=== PATIENT | male | born 1945 | race Caucasian/White ===

== ENCOUNTER 2017-06-06 11:51 | Day surgery (SDC) | payer MEDICARE, OTHER ==
[~2017-06-06] VITALS: Ht 185.4 cm; Wt 86.2 kg
[~2017-06-06 11:51] MED LIST: ACET500 PO; AMLO5 PO; BACL20 PO; CELE200 PO; CYCL10 PO; GABA600 PO; METO50 PO; OLME20 PO; OLME5TAB PO; ORPHENADRINE CITRATE PO; TAMS.4ER PO; TRAM50 PO; VERA240ERB PO; VERA80 PO; VITAMIN D400 UNI1 PO
[2017-06-06] MEDS ORDERED: UBID100 PO (12:18)
[2017-06-07 04:47] LABS: BASOPHILS ABSOLUTE AUTO 0.02 K/mm3 (0.00-0.23); BASOPHILS PERCENT AUTO 0 % (0-2); EOSINOPHILS ABSOLUTE AUTO 0.01 K/mm3 (0.00-0.68); EOSINOPHILS PERCENT AUTO 0 % (0-6); Hematocrit 34.9 % (37.0-53.0); Hemoglobin 11.8 g/dL (13.5-17.5); IMMATURE GRAN ABSOLUTE AUTO 0.06 K/mm3 (0.00-0.10); IMMATURE GRAN PERCENT AUTO 1 % (0-1); LYMPHOCYTES PERCENT AUTO 18 % (21-46); MONOCYTES ABSOLUTE AUTO 1.02 K/mm3 (0.16-1.47); MONOCYTES PERCENT AUTO 9 % (4-13); Mean Corpuscular HGB 31.6 pg (26.0-34.0); Mean Corpuscular HGB Conc 33.8 g/dL (31.5-36.5); Mean Corpuscular Volume 93 fL (80-100); Mean Platelet Volume 10.4 fL (9.1-12.4); NEUTROPHILS PERCENT AUTO 73 % (41-73); Platelet Count 263 K/mm3 (150-400); RDW Coefficient Variation 13.4 % (11.7-14.2); RDW Standard Deviation 45.5 fL (35.1-46.3); Red Blood Cell Count 3.74 M/mm3 (4.30-5.90); White Blood Cell Count 11.71 K/mm3 (4.00-11.30)
[2017-06-07 05:04] LABS: Anion Gap 8 mmol/L (6-16); Blood Urea Nitrogen 16 mg/dL (8-24); Bun/Creatinine Ratio 17.3 (12.0-20.0); CO2, Blood 26 mmol/L (21-32); Calcium, Blood 8.6 mg/dL (8.5-10.1); Chloride, Blood 107 mmol/L (98-108); Creatinine, Blood 0.93 mg/dL (0.60-1.20); Glomerular Filtration Rate >60 (60-); Glucose, Blood 92 mg/dL (70-99); Potassium, Blood 3.5 mmol/L (3.5-5.5); Sodium, Blood 141 mmol/L (136-145)
[2017-06-07] MEDS ORDERED: OXYC5 PO (12:00)
[2017-06-07] MEDS ORDERED: WARF4 PO (12:02)
== END 2017-06-07 15:00 | disposition home or self-care (01) ==
LOC: SURS 11:51 → PRE IP 11:51 → ORSCMMR 11:51 → EDSTATUS 13:30 → PRE IP 13:30 → SURS 18:02 → ORSCMMR 06-07 15:00
PROVIDERS: Orthopaedic Surgery
PROC: 0SRC0J9 Replacement of Right Knee Joint with Synthetic Substitute, Cemented, Open Approach (ICD-10-PCS; principal; 2017-06-06 13:30)
DX: M17.11 Unilateral primary osteoarthritis, right knee (principal); Z01.812 Encounter for preprocedural laboratory examination; Z01.818 Encounter for other preprocedural examination; I10 Essential (primary) hypertension; I69.351 Hemiplegia and hemiparesis following cerebral infarction affecting right dominant side; G47.33 Obstructive sleep apnea (adult) (pediatric); Z79.899 Other long term (current) drug therapy
CPT/HCPCS: 36415; 73560-RT; 80048; 85025; 86850; 86900; 86901; 88300; 97110; 97116; 97162; 97530; C1713; C1776; G8978; G8979; J0171; J0360; J0690; J0735; J1100; J1885; J2250; J2405; J2795; J3010; J7120

== ENCOUNTER 2017-06-17 04:55 | Emergency (ER) | payer MEDICARE, OTHER ==
[~2017-06-17] VITALS: Ht 188 cm; Wt 86.2 kg
[~2017-06-17 04:55] MED LIST changes: +OXYC5 PO; +UBID100 PO; +WARF4 PO
[2017-06-17] MEDS ORDERED: Roxicodone5 MG PO (06:39)
== END 2017-06-17 07:13 | disposition home or self-care (01) ==
LOC: ER 04:55
DX: G89.18 Other acute postprocedural pain (principal); M25.561 Pain in right knee; I10 Essential (primary) hypertension; Z96.651 Presence of right artificial knee joint; Z79.891 Long term (current) use of opiate analgesic; Z79.01 Long term (current) use of anticoagulants; Z79.899 Other long term (current) drug therapy; Z88.5 Allergy status to narcotic agent; Z88.1 Allergy status to other antibiotic agents
CPT/HCPCS: 73560-RT; 96374; 99283; J1170

== ENCOUNTER → 2019-08-29 | Outpatient (CLI) | payer MEDICARE, OTHER ==
[~2019-08-29] MED LIST changes: +Roxicodone5 MG PO
[2019-08-30 14:27] LABS: Stool Occult Bld Immuno 1 Negative (NEGATIVE)
== END ==
LOC: LAB SHORT 14:59 → LAB 14:59 → LAB FUT 08-27 09:05
PROVIDERS: Family Medicine
DX: D64.89 Other specified anemias (principal); N40.1 Benign prostatic hyperplasia with lower urinary tract symptoms; E29.1 Testicular hypofunction; I10 Essential (primary) hypertension
CPT/HCPCS: 82274

== ENCOUNTER 2020-02-11 06:07 | Day surgery (SDC) | payer MEDICARE, OTHER ==
[~2020-02-11] VITALS: Ht 188 cm; Wt 81.0 kg
[~2020-02-11 06:07] MED LIST changes: +AMLO10 PO; +Biotin800 MCG PO; +CHONDROITIN SU100 G1 PO; +COLLAGEN TYPE PO; +Curcumin1 GM PO; +GLUC500 PO; +HYALURONIC ACID PO; +KRILL OIL500 MG PO; +NIAC500 PO; +POTASSIUM PO; +PREG50 PO; +Pantothenic Ac500 MG PO; +SERAPEPTASE PO; +SODIUM PO; +SUPER B COMPLEX PO; +TYLENOL W/CODEINE PO; +VITAMIN B6 PO; +[UNRECOGNIZED DRUG - OTHER] PO; +[UNRECOGNIZED DRUG - OTHER] PO; +[UNRECOGNIZED DRUG - OTHER] TOP
== END 2020-02-11 23:01 | disposition home or self-care (01) ==
LOC: ORSCMMR 06:07 → ORD 07:30 → ORSCMMR 07:30
PROVIDERS: Surgery
PROC: 8E0W0CZ Robotic Assisted Procedure of Trunk Region, Open Approach (ICD-10-PCS; principal; 2020-02-11 07:30)
PROC: 0YU50JZ Supplement Right Inguinal Region with Synthetic Substitute, Open Approach (ICD-10-PCS; principal; 2020-02-11 07:30)
DX: K40.90 Unilateral inguinal hernia, without obstruction or gangrene, not specified as recurrent (principal); I10 Essential (primary) hypertension; G47.33 Obstructive sleep apnea (adult) (pediatric); Z86.73 Personal history of transient ischemic attack (TIA), and cerebral infarction without residual deficits; Z79.899 Other long term (current) drug therapy
CPT/HCPCS: 49505; S2900; C1781; J0690; J1100; J2250; J2405; J2704; J3010; J7120

== ENCOUNTER → 2020-05-11 | Outpatient (CLI) | payer MEDICARE | LOC: LAB SHORT 12:08 → LAB 12:08 | DX: D48.5 Neoplasm of uncertain behavior of skin (principal) | CPT/HCPCS: 88305 ==

== ENCOUNTER 2021-03-26 06:24 | Day surgery (SDC) | payer MEDICARE ==
[~2021-03-26] VITALS: Ht 182.9 cm; Wt 78.7 kg
[~2021-03-26 06:24] MED LIST changes: +PREG200; -PREG50 PO
[2021-03-26] MEDS ORDERED: METOPROLOL SUCC25 MG PO (07:18)
--- NOTE | 2021-03-26 07:48 | NUR ---
03/26/21 0748 Silver Frazier 0.25MG EPI ADDED TO 50ML'S 0.5% MARCAINE TO ACHIEVE SOLUTION OF 0.5% MARCAINE WITH EPI 1:200,000.
== END 2021-03-26 08:40 | disposition home or self-care (01) ==
LOC: ORSCSDS 06:24
PROVIDERS: Podiatrist Foot & Ankle Surgery
PROC: 2W5LXYZ Removal of Other Device on Right Lower Extremity (ICD-10-PCS; principal; 2021-03-26 07:30)
DX: T84.84XA Pain due to internal orthopedic prosthetic devices, implants and grafts, initial encounter (principal); I10 Essential (primary) hypertension; G47.33 Obstructive sleep apnea (adult) (pediatric); Z79.899 Other long term (current) drug therapy
CPT/HCPCS: J0171; J0690; J1100; J2250; J2405; J2704; J3010; J7120

== ENCOUNTER → 2021-04-21 | Outpatient (CLI) | payer MEDICARE ==
[~2021-04-21] MED LIST changes: +METOPROLOL SUCC25 MG PO
== END | disposition home or self-care (01) ==
LOC: LAB 10:44 → LAB SHORT 10:44
DX: D22.5 Melanocytic nevi of trunk (principal)
CPT/HCPCS: 88305

== ENCOUNTER 2021-12-30 19:59 | Emergency (ER) | payer MEDICARE ==
[~2021-12-30] VITALS: Ht 182.9 cm; Wt 81.7 kg
== END 2021-12-30 21:18 | disposition home or self-care (01) ==
LOC: ER 19:59
DX: S01.01XA Laceration without foreign body of scalp, initial encounter (principal); I10 Essential (primary) hypertension; W22.03XA Walked into furniture, initial encounter; Z79.899 Other long term (current) drug therapy
CPT/HCPCS: 12002; 99282-25

== ENCOUNTER 2022-11-28 19:27 | Emergency (ER) | payer MEDICARE ==
[~2022-11-28] VITALS: Ht 182.9 cm; Wt 79.4 kg
[2022-11-28 19:48] VITALS: BP 180/69
== END 2022-11-28 23:39 | disposition home or self-care (01) ==
LOC: ER 19:27
DX: S61.412A Laceration without foreign body of left hand, initial encounter (principal); I10 Essential (primary) hypertension; W18.40XA Slipping, tripping and stumbling without falling, unspecified, initial encounter; W45.8XXA Other foreign body or object entering through skin, initial encounter; Z88.8 Allergy status to other drugs, medicaments and biological substances; Z79.899 Other long term (current) drug therapy
CPT/HCPCS: 12001; 99283-25

== ENCOUNTER 2023-06-23 15:54 | Emergency (ER) | payer MEDICARE ==
[~2023-06-23] VITALS: Ht 180.3 cm; Wt 77.1 kg
[2023-06-23 16:18] VITALS: BP 184/77
== END 2023-06-23 16:30 | disposition home or self-care (01) ==
LOC: ER 15:54
DX: M75.101 Unspecified rotator cuff tear or rupture of right shoulder, not specified as traumatic (principal); I10 Essential (primary) hypertension; Z98.890 Other specified postprocedural states; Z91.81 History of falling; Z79.899 Other long term (current) drug therapy; Z88.1 Allergy status to other antibiotic agents
CPT/HCPCS: 99283

== ENCOUNTER → 2023-11-08 | Outpatient (CLI) | payer MEDICARE ==
[2023-11-08 16:05] LABS: Alanine Aminotransfer (ALT/SGP 29 U/L (12-78); Albumin, Blood 4.1 g/dL (3.4-5.0); Albumin/Globulin Ratio 1.2 (0.8-1.8); Alk Phos 78 U/L (50-136); Anion Gap 8 mmol/L (3-11); Aspartate Aminotrans (AST/SGOT 28 U/L (12-37); Blood Urea Nitrogen 18 mg/dL (8-24); Bun/Creatinine Ratio 25.7 (12.0-20.0); CHOL/HDL RATIO 2.3; CO2, Blood 30 mmol/L (21-32); Calcium, Blood 9.6 mg/dL (8.5-10.1); Chloride, Blood 106 mmol/L (98-108); Cholesterol 189 mg/dL (50-200); Globulin, Blood 3.3 g/dL (2.2-4.0); Glomerular Filtration Rate 95 (60-); Glucose, Blood 103 mg/dL (70-99); HDL Cholesterol 82 mg/dL (>39); LDL/HDL RATIO 1.1; Low Density Lipoprotein Chol 87 mg/dL (0-110); Potassium, Blood 3.7 mmol/L (3.5-5.5); Sodium, Blood 140 mmol/L (136-145); Total Protein, Blood 7.4 g/dL (6.4-8.2); Triglycerides 100 mg/dL (30-160); Very Low Density Lipoprot Chol 20 mg/dL (6-32)
== END | disposition home or self-care (01) ==
LOC: LAB SHORT 15:08 → LAB 15:08
PROVIDERS: Family Medicine
DX: E78.5 Hyperlipidemia, unspecified (principal); I10 Essential (primary) hypertension
CPT/HCPCS: 80053; 80061

== ENCOUNTER → 2024-05-22 | Outpatient (CLI) | payer OTHER ==
[2024-05-22 18:42] LABS: BASOPHILS ABSOLUTE AUTO 0.04 K/mm3 (0.00-0.23); BASOPHILS PERCENT AUTO 1 % (0-2); EOSINOPHILS ABSOLUTE AUTO 0.22 K/mm3 (0.00-0.68); EOSINOPHILS PERCENT AUTO 3 % (0-6); Hematocrit 36.4 % (37.0-53.0); Hemoglobin 12.3 g/dL (13.5-17.5); IMMATURE GRAN ABSOLUTE AUTO 0.02 K/mm3 (0.00-0.10); IMMATURE GRAN PERCENT AUTO 0 % (0-1); LYMPHOCYTES PERCENT AUTO 31 % (21-46); MONOCYTES ABSOLUTE AUTO 0.68 K/mm3 (0.16-1.47); MONOCYTES PERCENT AUTO 9 % (4-13); Mean Corpuscular HGB 30.5 pg (26.0-34.0); Mean Corpuscular HGB Conc 33.8 g/dL (31.5-36.5); Mean Corpuscular Volume 90 fL (80-100); Mean Platelet Volume 10.6 fL (9.1-12.4); NEUTROPHILS ABSOLUTE AUTO 4.38 K/mm3 (1.96-9.15); NEUTROPHILS PERCENT AUTO 57 % (41-73); Platelet Count 293 K/mm3 (150-400); RDW Coefficient Variation 14.1 % (11.7-14.2); Red Blood Cell Count 4.03 M/mm3 (4.30-5.90); White Blood Cell Count 7.74 K/mm3 (4.00-11.30)
[2024-05-22 19:50] LABS: Alanine Aminotransfer (ALT/SGP 22 U/L (12-78); Albumin, Blood 3.5 g/dL (3.4-5.0); Alk Phos 77 U/L (50-136); Anion Gap 8 mmol/L (3-11); Aspartate Aminotrans (AST/SGOT 22 U/L (12-37); Bilirubin, Total 0.7 mg/dL (0.1-1.0); Blood Urea Nitrogen 21 mg/dL (8-24); Bun/Creatinine Ratio 22.7 (12.0-20.0); CHOL/HDL RATIO 2.1; CO2, Blood 29 mmol/L (21-32); Calcium, Blood 9.5 mg/dL (8.5-10.1); Chloride, Blood 104 mmol/L (98-108); Cholesterol 158 mg/dL (50-200); Creatinine, Blood 0.92 mg/dL (0.60-1.20); Globulin, Blood 3.4 g/dL (2.2-4.0); Glomerular Filtration Rate 86 (60-); Glucose, Blood 127 mg/dL (70-99); HDL Cholesterol 75 mg/dL (>39); LDL/HDL RATIO 0.7; Low Density Lipoprotein Chol 54 mg/dL (0-110); Potassium, Blood 4.1 mmol/L (3.5-5.5); Sodium, Blood 137 mmol/L (136-145); Total Protein, Blood 6.9 g/dL (6.4-8.2); Triglycerides 144 mg/dL (30-160); Very Low Density Lipoprot Chol 28 mg/dL (6-32)
== END ==
LOC: LAB SHORT 17:05 → LAB 17:05
PROVIDERS: Family Medicine
DX: Z51.81 Encounter for therapeutic drug level monitoring (principal); Z79.899 Other long term (current) drug therapy
CPT/HCPCS: 80053; 80061; 82306; 83036; 84443; 85025

== ENCOUNTER → 2024-12-10 | Outpatient (CLI) | payer OTHER | LOC: LAB 08:26 → LAB SHORT 08:26 | DX: D23.5 Other benign neoplasm of skin of trunk (principal); D22.5 Melanocytic nevi of trunk | CPT/HCPCS: 88305 ==

== ENCOUNTER → 2025-01-14 | Outpatient (CLI) | payer OTHER | END | disposition home or self-care (01) | LOC: LAB 15:15 → LAB SHORT 15:15 | DX: R82.998 Other abnormal findings in urine (principal) | CPT/HCPCS: 87086 ==

== ENCOUNTER → 2025-03-25 | Outpatient (CLI) | payer OTHER | END | disposition home or self-care (01) | LOC: LAB 15:15 → LAB SHORT 15:15 | DX: L02.31 Cutaneous abscess of buttock (principal) | CPT/HCPCS: 87070; 87205 ==

== ENCOUNTER 2025-04-21 18:54 | Inpatient (IN) | payer OTHER ==
[~2025-04-21] VITALS: Ht 180.3 cm; Wt 85.3 kg
[~2025-04-21 18:54] MED LIST changes: +Lidocaine HCl 2% 20 MG/ML 5ML SYR IV ONE; +Propofol 10mg/ml 20 ml Vial (Procedural) IV ONE
[2025-04-21 19:30] LABS: BASOPHILS ABSOLUTE AUTO 0.04 K/mm3 (0.00-0.23); BASOPHILS PERCENT AUTO 0 % (0-2); EOSINOPHILS ABSOLUTE AUTO 0.00 K/mm3 (0.00-0.68); EOSINOPHILS PERCENT AUTO 0 % (0-6); Hematocrit 32.2 % (37.0-53.0); Hemoglobin 10.8 g/dL (13.5-17.5); IMMATURE GRAN ABSOLUTE AUTO 0.12 K/mm3 (0.00-0.10); IMMATURE GRAN PERCENT AUTO 1 % (0-1); LYMPHOCYTES ABSOLUTE AUTO 1.56 K/mm3 (0.84-5.20); LYMPHOCYTES PERCENT AUTO 8 % (21-46); MONOCYTES ABSOLUTE AUTO 1.36 K/mm3 (0.16-1.47); MONOCYTES PERCENT AUTO 7 % (4-13); Mean Corpuscular HGB Conc 33.5 g/dL (31.5-36.5); Mean Corpuscular Volume 91 fL (80-100); NEUTROPHILS ABSOLUTE AUTO 15.46 K/mm3 (1.96-9.15); NEUTROPHILS PERCENT AUTO 84 % (41-73); NRBC ABSOLUTE 0.00 K/mm3 (0.00-0.02); NRBC Auto 0.0 /100 WBC (0.0-0.2); Platelet Count 319 K/mm3 (150-400); RDW Coefficient Variation 13.4 % (11.7-14.2); RDW Standard Deviation 45.1 fL (35.1-46.3)
[2025-04-21 20:02] LABS: Alanine Aminotransfer (ALT/SGP 39.0 U/L (12-78); Albumin, Blood 2.5 g/dL (3.4-5.0); Albumin/Globulin Ratio 0.7 (0.8-1.8); Anion Gap 5.0 mmol/L (3-11); Aspartate Aminotrans (AST/SGOT 54.0 U/L (12-37); Bilirubin, Total 0.3 mg/dL (0.1-1.0); Blood Urea Nitrogen 42.0 mg/dL (8-24); CO2, Blood 27.0 mmol/L (21-32); Calcium, Blood 9.1 mg/dL (8.5-10.1); Chloride, Blood 103.0 mmol/L (98-108); Creatinine, Blood 1.09 mg/dL (0.60-1.20); Globulin, Blood 3.5 g/dL (2.2-4.0); Glucose, Blood 122.0 mg/dL (70-99); Potassium, Blood 3.9 mmol/L (3.5-5.5); Sodium, Blood 131.0 mmol/L (136-145); Total Protein, Blood 6.0 g/dL (6.4-8.2)
[2025-04-21 21:04] LABS: Source, Urine Clean Catch
[2025-04-21 21:07] LABS: Bilirubin, Urine Neg (Neg); Color, Urine Amber (P-Yellow); Glucose Qualitative, Urine Neg (Neg); Ketones, Urine Neg (Neg); Leukocyte Esterase, Urine 2+ (Neg); Protein, Urine 2+ (Neg); Specific Gravity, Urine 1.020 (1.003-1.022); Urobilinogen, Urine NORM (Normal)
[2025-04-21] MEDS ORDERED: CefTRIAXone Sodium 1,000 MG in NS 50 ML IV ONE (23:00)
[2025-04-21] MEDS ORDERED: NS 1,000 ML IV SCH ×2 (23:00→23:25)
[2025-04-21] MEDS ORDERED: FLU VACC TS2025(65UP)/MF59C/PF 45 MCG/0.5 ML SYRINGE IM SCH (23:25)
[2025-04-21] MEDS ORDERED: Ondansetron HCl 2 MG / ML 2ML Vial IV PRN (23:25)
[2025-04-21 23:42] LABS: Magnesium, Blood 2.4 mg/dL (1.6-2.4); Phosphorus, Blood 3.2 mg/dL (2.5-4.9); Thyroid Stimulating Hormone 0.991 uIU/mL (0.360-4.800)
[2025-04-21] MEDS ORDERED: METO100ER PO (23:51)
[2025-04-22] VITALS (7 sets, daily range): BP systolic 136–158; BP diastolic 55–77
[2025-04-22 01:52] LABS: Influenza A, PCR NEGATIVE (NEGATIVE); Influenza B, PCR NEGATIVE (NEGATIVE); Resp Syncytial Virus, PCR NEGATIVE (NEGATIVE); SARS-Cov-2 (COVID-19) PCR, MMC NEGATIVE (NEGATIVE)
[2025-04-22 05:11] LABS: BASOPHILS ABSOLUTE AUTO 0.02 K/mm3 (0.00-0.23); BASOPHILS PERCENT AUTO 0 % (0-2); EOSINOPHILS ABSOLUTE AUTO 0.01 K/mm3 (0.00-0.68); EOSINOPHILS PERCENT AUTO 0 % (0-6); Hematocrit 28.8 % (37.0-53.0); Hemoglobin 9.6 g/dL (13.5-17.5); IMMATURE GRAN ABSOLUTE AUTO 0.16 K/mm3 (0.00-0.10); IMMATURE GRAN PERCENT AUTO 1 % (0-1); LYMPHOCYTES ABSOLUTE AUTO 2.15 K/mm3 (0.84-5.20); LYMPHOCYTES PERCENT AUTO 14 % (21-46); MONOCYTES ABSOLUTE AUTO 1.38 K/mm3 (0.16-1.47); MONOCYTES PERCENT AUTO 9 % (4-13); Mean Corpuscular HGB Conc 33.3 g/dL (31.5-36.5); Mean Corpuscular Volume 92 fL (80-100); NEUTROPHILS ABSOLUTE AUTO 12.22 K/mm3 (1.96-9.15); NEUTROPHILS PERCENT AUTO 77 % (41-73); NRBC ABSOLUTE 0.00 K/mm3 (0.00-0.02); NRBC Auto 0.0 /100 WBC (0.0-0.2); Platelet Count 273 K/mm3 (150-400); RDW Coefficient Variation 13.5 % (11.7-14.2); RDW Standard Deviation 45.7 fL (35.1-46.3)
[2025-04-22 05:36] LABS: Alanine Aminotransfer (ALT/SGP 34.0 U/L (12-78); Albumin, Blood 2.0 g/dL (3.4-5.0); Albumin/Globulin Ratio 0.7 (0.8-1.8); Anion Gap 5.0 mmol/L (3-11); Aspartate Aminotrans (AST/SGOT 47.0 U/L (12-37); Bilirubin, Total 0.2 mg/dL (0.1-1.0); Blood Urea Nitrogen 36.0 mg/dL (8-24); CO2, Blood 26.0 mmol/L (21-32); Calcium, Blood 8.5 mg/dL (8.5-10.1); Chloride, Blood 110.0 mmol/L (98-108); Creatinine, Blood 0.97 mg/dL (0.60-1.20); Globulin, Blood 2.9 g/dL (2.2-4.0); Glucose, Blood 97.0 mg/dL (70-99); Potassium, Blood 3.4 mmol/L (3.5-5.5); Sodium, Blood 138.0 mmol/L (136-145); Total Protein, Blood 4.9 g/dL (6.4-8.2)
--- NOTE | 2025-04-22 06:26 | NUR ---
ASSUMED CARE 0130, PT IS PLEASANT ON ARRIVAL TO UNIT WITH . PT ON IV FLUIDS FOR SEPSIS RECOVERY, PENDING ECHO IN AM. PT IS UP W/ 1 TO WHEELCHAIR AND USES CALL LIGHT APPROPRIATELY.
[2025-04-22] MEDS ORDERED: Enoxaparin 40 MG/0.4 ML SYR SC SCH (09:00)
[2025-04-22] MEDS ORDERED: ASPI325 PO (09:21)
--- NOTE | 2025-04-22 09:31 | NUR ---
PALLIATIVE CARE CONSULT: CONSULT RECEIVED FOR ADVANCED CARE PLANNING AND SYMPTOM MANAGEMENT. NOAD/POLST ON FILE OR WITH O[facility]. REVEIWED MEDICAL RECORD. PROCESSED CONSULT.
[2025-04-22] MEDS ORDERED: BUPRENORPHN-NA1 EACH SL (09:58)
[2025-04-22] MEDS ORDERED: BUPRENORPHINE1 EAC6 TD (10:00)
[2025-04-22] MEDS ORDERED: Buprenorphine HCL/Naloxone HCL 2-0.5MG 1 EA SL SCH (11:00)
[2025-04-22] MEDS ORDERED: Lactobacil 2-S.Thermo-Bifido 1 1 Cap PO SCH (11:00)
[2025-04-22] MEDS ORDERED: Vancomycin (Pharmacy Consult) IV SCH (15:00)
[2025-04-22] MEDS ORDERED: Potassium Chloride 10 Meq Tablet SA PO ONE (15:00)
[2025-04-22] MEDS ORDERED: NS 250 ML IV PRN (15:30)
--- NOTE | 2025-04-22 17:37 | NUR ---
PT ALERT AND ORIENTED X3, CHRONIC PAIN TO RIGHT SIDE OF BODY DUE TO PREIOUS CVA. PT STATES REFERRAL TO PAIN SPECIALIST IN PROCESS PER PCP-NO APPT SCHEDULED AT THIS POINT. SUBOXONE PATCH IN PLACE AND DUE TO BE CHANGED ON 04/25 (MONDAY), PRN SUBOXONE ORDER SUBLINGUAL, ASPIRIN, AND BACLOFEN FOR PAIN. PT REFUSED LYRICA DOSE DUE TO NEGATIVE SIDE EFFECT IN THE PAST BUT UNABLE TO REMEMBER SIDE EFFECT. PT HAS BEEN COMFORTABLE FOR MOST OF THE DAY AND RESTING. PT CHANGED TO HOSPITAL GOWN AND NOTED TO HAVE THREE SUBOXONE PATCHES ON BODY- TWO PATCHES REMOVED AND MOST RECENT NEW PATCH LEFT IN PLACE. EDUCATED PT ON IMPORTANCE OF USING PATCHES ORDERED. PT STATES "I LEAVE THEM ON SO I CAN GET ALL THE PAIN MEDICATION I CAN TO CONTROLL MY PAIN". EDUCATED PT ON REPOSITIONING IN BED FOR PRESSURE ULCER PREVENTION, CHAIR WAFFLE CUSION APPLIIED. NO FEVERS NOTED THIS SHIFT, VSS, IV ABX PER ORDERS, BED ALARM ON, CALL LIGHT IN REACH. AND PATIENT EDUCATED ON PT NOT BEING ALLOWED TO USE CBD SALVE OR OTHER HOME MEDS WHILE ADMITTED IN HOSPITAL, INSTRUCTED TO TAKE ALL PT'S MEDICATIONS HOME.
[2025-04-22] MEDS ORDERED: CefTRIAXone Sodium 1,000 MG in NS 100 ML IV SCH (21:00)
[2025-04-23 03:44] VITALS: BP 162/67
--- NOTE | 2025-04-23 04:48 | NUR ---
SHIFT SUMMARY: PT AOX3-4 CONFUSED AT TIMES BUT REORIENTS EASILY. PLEASANT AND COOPERATIVE IN CARE. FOLLOWS COMMANDS AND CALLS APPROPRAITELY. DROWSY THIS EVENING BUT AWAKENS EASILY. TOLERATING MEDICATIONS WELL, SOME PAIN, MEDICATED PER EMAR. PT TOLERATING MEDICATIONS WELL. PT IN BED RESTING, BED IN LOWEST POSITION, CALL LIGHT IN REACH. CONTNUING CARE.
[2025-04-23 04:59] LABS: BASOPHILS ABSOLUTE AUTO 0.04 K/mm3 (0.00-0.23); BASOPHILS PERCENT AUTO 0 % (0-2); EOSINOPHILS ABSOLUTE AUTO 0.01 K/mm3 (0.00-0.68); EOSINOPHILS PERCENT AUTO 0 % (0-6); Hematocrit 30.1 % (37.0-53.0); Hemoglobin 10.0 g/dL (13.5-17.5); IMMATURE GRAN ABSOLUTE AUTO 0.16 K/mm3 (0.00-0.10); IMMATURE GRAN PERCENT AUTO 1 % (0-1); LYMPHOCYTES ABSOLUTE AUTO 2.33 K/mm3 (0.84-5.20); LYMPHOCYTES PERCENT AUTO 15 % (21-46); MONOCYTES ABSOLUTE AUTO 1.54 K/mm3 (0.16-1.47); MONOCYTES PERCENT AUTO 10 % (4-13); Mean Corpuscular HGB Conc 33.2 g/dL (31.5-36.5); Mean Corpuscular Volume 93 fL (80-100); NEUTROPHILS ABSOLUTE AUTO 11.89 K/mm3 (1.96-9.15); NEUTROPHILS PERCENT AUTO 74 % (41-73); NRBC ABSOLUTE 0.00 K/mm3 (0.00-0.02); NRBC Auto 0.0 /100 WBC (0.0-0.2); Platelet Count 345 K/mm3 (150-400); RDW Coefficient Variation 13.8 % (11.7-14.2); RDW Standard Deviation 47.2 fL (35.1-46.3)
[2025-04-23 05:26] LABS: Alanine Aminotransfer (ALT/SGP 38.0 U/L (12-78); Albumin, Blood 1.9 g/dL (3.4-5.0); Albumin/Globulin Ratio 0.6 (0.8-1.8); Anion Gap 7.0 mmol/L (3-11); Aspartate Aminotrans (AST/SGOT 41.0 U/L (12-37); Bilirubin, Total 0.3 mg/dL (0.1-1.0); Blood Urea Nitrogen 32.0 mg/dL (8-24); CO2, Blood 26.0 mmol/L (21-32); Calcium, Blood 8.5 mg/dL (8.5-10.1); Chloride, Blood 110.0 mmol/L (98-108); Creatinine, Blood 1.12 mg/dL (0.60-1.20); Ferritin, Serum 217.0 ng/mL (26-388); Globulin, Blood 3.3 g/dL (2.2-4.0); Glucose, Blood 104.0 mg/dL (70-99); Potassium, Blood 3.7 mmol/L (3.5-5.5); Sodium, Blood 139.0 mmol/L (136-145); Total Iron Binding Capacity 194.0 ug/dL (250-450); Total Protein, Blood 5.2 g/dL (6.4-8.2)
[2025-04-23 07:01] VITALS: BP 157/66
[2025-04-23 11:11] VITALS: BP 166/69
[2025-04-23 15:38] VITALS: BP 150/66
--- NOTE | 2025-04-23 18:00 | NUR ---
PATIENT A/OX3-4, OCCASIONAL CONFUSION. PT/OT ORDERED, PATIENT SAT AT SIDE OF BED, BUT TOO WEAK TO STAND THIS SHIFT. R SIDED WEAKNESS FROM HX OF CVA AND USES A POWERCHAIR AT BASELINE. LUNGS CLEAR, ON RA. SCHEDULED SUBOXONE GIVEN TO TREAT CHRONIC BACK PAIN. TOLERATING REGULAR DIET. VSS, ON RA. FIRST DEG AV BLOCK ON TELE, DENIES ANY CHEST PAIN OR PRESSURE. PLEASANT AND COOPERATIVE WITH CARE, NO NEW CONCERNS THIS SHIFT.
[2025-04-23 19:20] VITALS: BP 152/73
[2025-04-24] VITALS (7 sets, daily range): BP systolic 130–158; BP diastolic 59–70
--- NOTE | 2025-04-24 06:25 | NUR ---
STACKER AND SORTER OPERATOR SUMMARY PT A&OX4, VSS. ABLE TO COMMUNICATE NEEDS APPROPRIATELY. PT HAS BEEN ASLEEP ON AND OFF THIS SHIFT. CHEST RISE/RESPIRATIONS NOTED. REMAINS ON TELE. SR AT 82 W/ 1ST DEG AV BLOCK. CONTINUING TO RECEIVE DAILY AZITHROMYCIN AND DAILY CEFTRIAXONE WELL VANCO Q12H. BED RAILS UP X 2, BED IN LOWEST POSITION, BED WHEELS LOCKED, PERSONAL BELONGINGS AND CALL LIGHT WITHIN REACH FOR SAFETY.
[2025-04-24] MEDS ORDERED: Ketorolac Tromethamine 15mg Vial IV PRN (12:25)
[2025-04-24] MEDS ORDERED: ZINC OXIDE/PETROLATUM, YELLOW 1 APPLIC/71 GM PASTE TOP PRN (13:55)
[2025-04-24 15:16] LABS: Hematocrit 27.1 % (37.0-53.0); Hemoglobin 8.9 g/dL (13.5-17.5); Mean Corpuscular HGB Conc 32.8 g/dL (31.5-36.5); Mean Corpuscular Volume 93 fL (80-100); NRBC ABSOLUTE 0.00 K/mm3 (0.00-0.02); NRBC Auto 0.0 /100 WBC (0.0-0.2); Platelet Count 352 K/mm3 (150-400); RDW Coefficient Variation 14.1 % (11.7-14.2); RDW Standard Deviation 48.5 fL (35.1-46.3)
[2025-04-24 15:35] LABS: Anion Gap 9 mmol/L (3-11); Blood Urea Nitrogen 22 mg/dL (8-24); CO2, Blood 25 mmol/L (21-32); Calcium, Blood 8.8 mg/dL (8.5-10.1); Chloride, Blood 107 mmol/L (98-108); Creatinine, Blood 0.81 mg/dL (0.60-1.20); Glucose, Blood 151 mg/dL (70-99); Potassium, Blood 3.6 mmol/L (3.5-5.5); Sodium, Blood 137 mmol/L (136-145); Vancomycin, Trough 11.8 ug/mL (5.0-10.0)
--- NOTE | 2025-04-24 19:06 | NUR ---
SUMMARY PT WORKED WITH THERAPY TODAY. BOTH SETS OF BLOOD CULTURES ARE POSITIVE FOR GRAM POSITIVE COCCI IN CLUSTERS. DR. DE LA PAZ WAS CALLED TO BE MADE AWARE. NO CHANGES WERE MADE TO IV ANTIBIOTICS. PLAN IS TO HAVE MIDLINE PLACED TOMORROW. PT REQUIRES REPOSITION ASSIST. DUE TO RIGHT SIDED DEFICITS FROM CVA HISTORY. PT CALLING APPROPRIATELY. USING URINAL AT BEDSIDE WITH MINIMAL ASSIST. AT BEDSIDE TODAY FOR A COUPLE HOURS AND BROUGHT PT SOME SOUP FROM HOME. DR. DE LA PAZ CHANGED PT PAIN REGIMEN FORM PRN ASPIRIN TO PRN TORODOL WHICH PT DID REPORTS WAS EFFECTIVE. NOT ATTEMPTING UP OOB UNSAFELY.
[2025-04-25 02:21] VITALS: BP 155/75
--- NOTE | 2025-04-25 04:05 | NUR ---
LINE OUT MAN SUMMARY PT A&OX4, VSS. ABLE TO COMMUNICATE NEEDS APPROPRIATELY. PT HAS BEEN ASLEEP FOR MOST OF THE SHIFT. CHEST RISE/RESPIRATIONS NOTED. TORADOL ADMIN X 1 FOR R SIDE PAIN W/ GOOD EFFECT. PT AWAKE INTERMITTENTLY TO USE URINAL W/ MINIMAL ASSISTANCE. BED RAILS UP X 2, BED IN LOWEST POSITION, BED WHEELS LOCKED, PERSONAL BELONGINGS AND CALL LIGHT WITHIN REACH FOR SAFETY.
[2025-04-25 07:25] VITALS: BP 144/64
[2025-04-25 11:33] VITALS: BP 130/54
[2025-04-25 13:14] LABS: Hematocrit 29.4 % (37.0-53.0); Hemoglobin 9.7 g/dL (13.5-17.5); Mean Corpuscular HGB Conc 33.0 g/dL (31.5-36.5); Mean Corpuscular Volume 94 fL (80-100); NRBC ABSOLUTE 0.00 K/mm3 (0.00-0.02); NRBC Auto 0.0 /100 WBC (0.0-0.2); Platelet Count 416 K/mm3 (150-400); RDW Coefficient Variation 14.0 % (11.7-14.2); RDW Standard Deviation 48.4 fL (35.1-46.3)
[2025-04-25 13:34] LABS: C-REACTIVE PROTEIN, EXT RANGE 11.6 mg/dL (0.000-0.300)
[2025-04-25 13:39] LABS: Anion Gap 7.0 mmol/L (3-11); Blood Urea Nitrogen 21.0 mg/dL (8-24); CO2, Blood 26.0 mmol/L (21-32); Calcium, Blood 8.5 mg/dL (8.5-10.1); Chloride, Blood 106.0 mmol/L (98-108); Creatinine, Blood 0.75 mg/dL (0.60-1.20); Glucose, Blood 140.0 mg/dL (70-99); Potassium, Blood 4.3 mmol/L (3.5-5.5); Sodium, Blood 135.0 mmol/L (136-145)
[2025-04-25 16:32] VITALS: BP 139/64
[2025-04-25 19:17] VITALS: BP 173/73
--- NOTE | 2025-04-25 19:25 | NUR ---
END OF SHIFT NOTE PATIENT RESTING IN BED, A&O4, ABLE TO MAKE NEEDS KNOWN. BED IN LOW POSITION, CALL LIGHT IN REACH. USING URINAL WITH MINIMAL ASSISTANCE. ATTENDS IN PLACE.IV TO LEFT UPPER ARM. FAMILY IN TODAY TO VISIT. BLOOD CULTURES POSITIVE, PLAN TO RECHECK AND SCANS DONE TODAY LOOKING FOR SOURCE OF POSSIBLE INFECTION. PATIENT AWARE OF PLAN. NO OTHER CONCERNS FOR THIS SHIFT.
[2025-04-25] MEDS ORDERED: HydrALAZINE HCl 20 MG / ML 1ML Vial IV PRN (20:15)
[2025-04-25 21:27] VITALS: BP 151/69
[2025-04-26 00:24] VITALS: BP 139/63
[2025-04-26 04:40] VITALS: BP 157/69
[2025-04-26 07:14] VITALS: BP 163/71
--- NOTE | 2025-04-26 07:47 | NUR ---
SHIFT SUMMARY PATIENT A&O STATUS WAXXED AND WANED TOWARDS THE END OF THE SHIFT, HOWEVER, THE PATIENT DID NOT SLEEP FOR LONG DUE TO NOCTURIA ALTHOUGH HE VOIDED VERY LITTLE EACH TIME LESS THAN ABOUT 50ML AN HOUR. PATIENT STATES THAT THEY DON'T FEEL IF THEY ARE PEEING OR IF THEY GET EVERYTHING OUT. ACCORDING TO STAFF MEMBER, PATIENT STATED THAT HE HAD PAIN WHILE TRYING BEAR DOWN, BUT LATER DENIED WHEN THIS RN HAD ASKED ALTHOUGH AT THIS POINT DID CONFUSE WHERE MY VOICE WAS COMING FROM. BED AT LOWEST LEVEL, 3 BED RAILS UP, ABLE TO MAKE NEEDS KNOWN CALL LIGHT WITHIN REACH.
[2025-04-26] MEDS ORDERED: Polyethylene Glycol 3350 17 gm PO PRN (07:50)
[2025-04-26] MEDS ORDERED: Docusate Sodium/Senna 1 Tab PO SCH (09:00)
--- NOTE | 2025-04-26 09:43 | NUR ---
NOTIFIED DR. DE LA PAZ DURING ROUNDS THAT PATIENT HAS HAD MULITPLE REFQUENCT VOIDS WITH LITTLE OUTPUT. BLADDER SCANNED THE PATIENT AND HE HAD 377ML IN HIS BLADDER. PER DR. DE LA PAZ START ON FLOMAX 0.4 MG PO DAILY.
--- NOTE | 2025-04-26 10:44 | NUR ---
NOTIFIED DR. DE LA PAZ OF POSITIVE BLOOD CULTURE X2
[2025-04-26 11:38] VITALS: BP 125/63
[2025-04-26] MEDS ORDERED: Ampicillin Sod/Sulbactam Sod 3 GM in NS 100 ML IV SCH (12:00)
[2025-04-26 15:09] VITALS: BP 140/68
--- NOTE | 2025-04-26 16:49 | NUR ---
SHIFT SUMMARY: PATIENT IS A&OX4/ BEDREST; 1-2 PERSON ASSIST WITH CARE NEEDS. PATIENT UNABLE TO STAND WITH PT TODAY; JUST STRONG ATTEMPT. PATIENT C/O PAIN. HE WILL HOLLER OUT; NOT USE CALL LIGHT. HE IS IN BED, CALL LIGHT WITHIN REACH, NO SIGNS OR SYMPTOMS OF DISTRESS, BED ALARM ON, IV ANTIBIOTIC THERAPY CHANGED TODAY; POSSIBLE JD ON MONDAY TO DETERMINE CAUSE OF INFECTION.
--- NOTE | 2025-04-26 18:28 | NUR ---
ASSISTED PATIENT WITH THE URINAL. UPON VISUALIZATION COMPARED TO PRIOR ASSESSMENT, R SIDE OF SHAFT OF PENIS APPEARED SWOLLEN. PATIENTS; LEGS WERE SEVERELY BEND AND HE WAS C/O HIS ABD CRAMPING. PATIENTS' LEGS LOWER, ENSURED THAT GENITALS WEREN'T CONSTRICTED. NO REDNESS, PATIENT DENIES PAIN. WAS ABLE TO VOID. PATIENT HX OF CIRCUMCISION; SO NO CONCERNS WITH FORESKIN CONSTRICTION. DURING THESE INTERVENTIONS AND IN ROOM; SWELLING APPEARS TO IMPROVE.
--- NOTE | 2025-04-26 18:45 | NUR ---
CALLED AND REPORTED ABD US FINDINGS TO DR. DE LA PAZ ON 16MM RENAL STONE AND CONTINUED L SIDE MILD HYDRONEPHROSIS. PER DR. DE LA PAZ HE WILL CONSULT WITH UROLOGY TOMRROW 04/27/25
[2025-04-26 19:36] VITALS: BP 132/68
[2025-04-27] VITALS (7 sets, daily range): BP systolic 122–167; BP diastolic 52–81
--- NOTE | 2025-04-27 04:37 | NUR ---
SHIFT SUMMARY PATIENT A&OX4, THIS SHIFT HAD NO CONFUSION PRESENT AND WAS ABLE TO ANSWER ALL OF THE QUESTIONS I ASKED, ALTHOUGH THE PATIENT CAN FORGET SOMETIMES. PATIENT WAS PUT ON A WAFFLE PAD DUE TO LIMITED MOBILITY TO HELP REDUCE PRESSURE ON PRESSURE POINTS. NO DISTRESS NOTED, BED AT LOWEST LEVEL, CALL LIGHT WITHIN REACH, BED RAILS UP X3. SOME URINARY RETENTION NOTED AGAIN JUST LIKE DAYSHIFT. SPECIALTY TO BE CONSULTED. HAD 900ML OF OUTPUT VIA PURWIC.
[2025-04-27] MEDS ORDERED: HYDROmorphone HCl/Pf 1MG SYR IV PRN ×2 (06:20→07:40)
--- NOTE | 2025-04-27 15:54 | NUR ---
ASSUMED CARE PT IS A/O X 4 VERY PLEASENTCOOPERATIVE WITH CARE, VSS. FREQUENT URINATION, WITH MINIMAL OUTPUT OF 1-200 AT A TIME. BLADDER SCAN SHOWS INCOMPLETE EMPTYING WITH 350ML LEFT IN BLADDER. DR DE LA PAZ NOTIFIED.
--- NOTE | 2025-04-27 16:03 | NUR ---
NO CHANGE PT DOING WELL NO CHANGE IN CONDITION, FAMILY AT BEDSIDE. PT CONTINUALLY CALLING TO BE ASSISTED WITH URINAL. PT MEDICATED FOR PAIN AND IS NOW ATTEMPTING TO SLEEP.
[2025-04-28 00:07] VITALS: BP 165/73
[2025-04-28 03:48] VITALS: BP 171/62
--- NOTE | 2025-04-28 05:08 | NUR ---
SHIFT SUMMARY*CONSTIPATION* PATIENT HAS BEEN DISCOMFORTFUL DUE TO CONSTIPATION SINCE ABOUT 0230, MEDICATED PER EMAR AND HAD SOME RELIEF BY ABOUT 0450 WITH MEDS PER JUL. STOOL IS HARD, AND A SMALL BM WORTH. IT SEEMS IF THERE IS MORE, TOLD THIS RN TO TRY THE LAST DOCUMENTED MEDICATION FOR BM AND IF THERE IS STILL SOME DISCOMFORT, PASS IT ON TO DAY SHIFT. PATIENT IS ABLE TO MAKE NEEDS KNOWN, HOWEVER, HAS NOT BEEN USING HIS CALL LIGHT AND INSTEAD HAS BEEN YELLING FOR HELP EVEN THOUGH CALL LIGHT WITHIN REACH. BED AT LOWEST LEVEL, NO DISTRESS NOTED
[2025-04-28 05:29] LABS: Hematocrit 27.4 % (37.0-53.0); Hemoglobin 9.0 g/dL (13.5-17.5); Mean Corpuscular HGB Conc 32.8 g/dL (31.5-36.5); Mean Corpuscular Volume 92 fL (80-100); NRBC ABSOLUTE 0.00 K/mm3 (0.00-0.02); NRBC Auto 0.0 /100 WBC (0.0-0.2); Platelet Count 479 K/mm3 (150-400); RDW Coefficient Variation 13.7 % (11.7-14.2); RDW Standard Deviation 46.5 fL (35.1-46.3)
--- NOTE | 2025-04-28 05:44 | NUR ---
DOCTOR ROUND PATIENT WAS ASLEEP SO THIS RN AND DOC TALKED ABOUT CAUSES AND THE FUTURE PLANS OF TREATMENT. DOCTOR TALKED ABOUT IT BEING THE POTENTIAL SIDE EFFECTS MOST LIKELY FROM OIPIODS. WHEN DOCTOR WAS IN ROOM, PATIENT WAS NO LONGER IN DISTRESS FROM THE CONSTIPATION CURRENTLY. HOSPITALIST THINKS WITH THE AMOUNT EXTRACTED, IT WILL GIVE THE MEDICINES MORE TIME TO WORK. DEPENDING ON HOW BAD IT GETS, IT MAY REQUIRE A PROCEDURE OR MANUAL DISIMPACTION TO EXTRACT THE STOOL
[2025-04-28 05:53] LABS: Albumin, Blood 1.7 g/dL (3.4-5.0); Anion Gap 7 mmol/L (3-11); Blood Urea Nitrogen 18 mg/dL (8-24); CO2, Blood 30 mmol/L (21-32); Calcium, Blood 8.4 mg/dL (8.5-10.1); Chloride, Blood 105 mmol/L (98-108); Creatinine, Blood 0.69 mg/dL (0.60-1.20); Glucose, Blood 108 mg/dL (70-99); Magnesium, Blood 1.8 mg/dL (1.6-2.4); Phosphorus, Blood 3.9 mg/dL (2.5-4.9); Potassium, Blood 3.5 mmol/L (3.5-5.5); Sodium, Blood 138 mmol/L (136-145)
[2025-04-28 07:20] VITALS: BP 171/80
[2025-04-28 15:28] VITALS: BP 142/53
--- NOTE | 2025-04-28 15:31 | NUR ---
Upon receiving a referral for spiritual care, I visited the patient. He talks at length about his medical struggles, his family and his deeper appreciation for the people in his life. He states that family is what keeps that fire lit to keep trying and pushing to be healthier. I provided therapeutic listening, a calming presence and companionship. The patient responded well and showed shigns of an elevated mood and outlook.
--- NOTE | 2025-04-28 17:20 | NUR ---
END OF SHIFT NOTE PATIENT RESTING IN BED, A&O4, ABLE TO MAKE NEEDS KNOWN. CALL LIGHT IN REACH, BED IN LOWEST POSITION. PATIENT ORDERED TO BE NPO AFTER MIDNIGHT, FOR POSSIBLE STINT PLACEMENT TOMORROW. PATIENT UNDERSTANDS THE PLAN. ATTENDS IN PLACE, MALE PUREWICK IN PLACE. PATIENT DANGLED AT EDGE OF BED WITH THERAPY TODAY. PATIENT HAD TWO BOWEL MOVEMENTS ON THIS SHIFT, FEELING LESS CONSTIPATED. TELE IN PLACE. NO OTHER CONCERNS FOR THIS SHIFT.
[2025-04-28 19:26] VITALS: BP 127/55
[2025-04-28 23:39] VITALS: BP 138/69
[2025-04-29] VITALS (19 sets, daily range): BP systolic 106–168; BP diastolic 54–81
--- NOTE | 2025-04-29 04:16 | NUR ---
SHIFT SUMMARY; PATIENT SLEPT IN LONG INTERVALS, REPOSITIONED Q2HR. TELE NSR. MEDICATED FOR PAIN. LAB CALLED WITH POSITIVE BLOOD CULTURE, WHICH IS THE SAME PATHOGEN THE LAST BLOOD CULTURES. REPORT TO HOSPITALIST.NPO AFTER MIDNIGHT FOR PROCEDURE.
[2025-04-29 04:42] LABS: Hematocrit 26.8 % (37.0-53.0); Hemoglobin 8.8 g/dL (13.5-17.5); Mean Corpuscular HGB Conc 32.8 g/dL (31.5-36.5); Mean Corpuscular Volume 92 fL (80-100); NRBC ABSOLUTE 0.00 K/mm3 (0.00-0.02); NRBC Auto 0.0 /100 WBC (0.0-0.2); Platelet Count 492 K/mm3 (150-400); RDW Coefficient Variation 13.6 % (11.7-14.2); RDW Standard Deviation 46.3 fL (35.1-46.3)
[2025-04-29 05:00] LABS: Albumin, Blood 1.7 g/dL (3.4-5.0); Anion Gap 8 mmol/L (3-11); Blood Urea Nitrogen 21 mg/dL (8-24); CO2, Blood 28 mmol/L (21-32); Calcium, Blood 8.7 mg/dL (8.5-10.1); Chloride, Blood 104 mmol/L (98-108); Creatinine, Blood 0.71 mg/dL (0.60-1.20); Glucose, Blood 96 mg/dL (70-99); Magnesium, Blood 1.9 mg/dL (1.6-2.4); Phosphorus, Blood 3.2 mg/dL (2.5-4.9); Potassium, Blood 3.4 mmol/L (3.5-5.5); Sodium, Blood 137 mmol/L (136-145)
--- NOTE | 2025-04-29 09:14 | NUR ---
0036- TELEPHONE VERBAL FROM ARY THAT PT CAN EAT. HOLDING OFF ON PCN FOR NOW.
--- NOTE | 2025-04-29 11:06 | NUR ---
1100- VERBAL TO DC TELE PER MD PISANO.
--- NOTE | 2025-04-29 13:13 | NUR ---
1257- THIS [facility] AND ASKED IF PT NEEDED A FILM RECORDIST CONSULT PLACED FOR THE ORDERED JD. OFFICE STAFF EXPLAINED A FILM RECORDIST CONSULT MUST BE PLACED FOR THE ORDERED JD. THIS RN TO PLACE ORDER.
[2025-04-29] MEDS ORDERED: Benzocaine Oral Spray 0.5ML UD ONE (13:46)
[2025-04-29] MEDS ORDERED: NS 1,000 ML IV ONE (14:12)
--- NOTE | 2025-04-29 14:50 | NUR ---
PT AWAKE AND CONVERSING POST PROCEDURE, DENIES PAIN, VSS ON RA.
--- NOTE | 2025-04-29 15:20 | NUR ---
REPORT CALLED TO SOPHIA HERNANDEZ; ALL QUESTIONS ANSWERED. PT RETURNED TO RM 301 VIA STRETCHER, CONDITION STABLE.
[2025-04-29] MEDS ORDERED: Iron Dextran 50 MG / ML 2ML Vial IV ONE (15:50)
[2025-04-29] MEDS ORDERED: Iron Dextran 975 MG in NS 250 ML IV ONE (17:00)
[2025-04-29] MEDS ORDERED: DAPTOmycin 600 MG in NS 50 ML IV SCH (18:00)
--- NOTE | 2025-04-29 18:27 | NUR ---
SUMMARY- AAOX4. CALM AND COOPERATIVE. BEDREST. PT ON RA. NO FEVERS THIS SHIFT. NO ACUTE EVENTS THIS SHIFT.
[2025-04-30 03:03] VITALS: BP 157/74
[2025-04-30 04:54] LABS: BASOPHILS ABSOLUTE AUTO 0.03 K/mm3 (0.00-0.23); BASOPHILS PERCENT AUTO 0 % (0-2); EOSINOPHILS ABSOLUTE AUTO 0.04 K/mm3 (0.00-0.68); EOSINOPHILS PERCENT AUTO 0 % (0-6); Hematocrit 26.1 % (37.0-53.0); Hemoglobin 8.6 g/dL (13.5-17.5); IMMATURE GRAN ABSOLUTE AUTO 0.05 K/mm3 (0.00-0.10); IMMATURE GRAN PERCENT AUTO 1 % (0-1); LYMPHOCYTES ABSOLUTE AUTO 1.70 K/mm3 (0.84-5.20); LYMPHOCYTES PERCENT AUTO 19 % (21-46); MONOCYTES ABSOLUTE AUTO 0.89 K/mm3 (0.16-1.47); MONOCYTES PERCENT AUTO 10 % (4-13); Mean Corpuscular HGB Conc 33.0 g/dL (31.5-36.5); Mean Corpuscular Volume 92 fL (80-100); NEUTROPHILS ABSOLUTE AUTO 6.29 K/mm3 (1.96-9.15); NEUTROPHILS PERCENT AUTO 70 % (41-73); NRBC ABSOLUTE 0.00 K/mm3 (0.00-0.02); NRBC Auto 0.0 /100 WBC (0.0-0.2); Platelet Count 489 K/mm3 (150-400); RDW Coefficient Variation 13.5 % (11.7-14.2); RDW Standard Deviation 46.1 fL (35.1-46.3)
[2025-04-30 05:16] LABS: Anion Gap 8.0 mmol/L (3-11); Blood Urea Nitrogen 19.0 mg/dL (8-24); CO2, Blood 30.0 mmol/L (21-32); Calcium, Blood 8.8 mg/dL (8.5-10.1); Chloride, Blood 105.0 mmol/L (98-108); Creatinine, Blood 0.65 mg/dL (0.60-1.20); Glucose, Blood 101.0 mg/dL (70-99); Potassium, Blood 2.9 mmol/L (3.5-5.5); Sodium, Blood 140.0 mmol/L (136-145)
--- NOTE | 2025-04-30 05:25 | NUR ---
SHIFT SUMMARY- - Events: No new shift events. Pain managed with one administration per EMR. - Orientation: A/Ox4. - Ambulation: Bedrest; wheelchair at baseline. - Medication: Whole with water. - Toileting: Purewick for urine; incontinent of stool.
--- NOTE | 2025-04-30 06:08 | NUR ---
POTASSIUM LEVEL/HCP CALL: POTASSIUM 2.9. HCP NOTIFIED, ORDERS ADDED FROM TELEPHONE ORDER.
[2025-04-30 07:28] VITALS: BP 164/65
--- NOTE | 2025-04-30 11:29 | NUR ---
1100- VERBAL FROM MD PISANO TO PLACE ORDER TO PICC LINE INSERTION PRIOR TO DC FOR LONG-TERM ABX. VERBAL FROM ALIYA TO ALSO DC TELE ORDER.
--- NOTE | 2025-04-30 15:09 | NUR ---
9080- TELEPHONE VERBAL FROM MD PISANO TO ORDER 325MG ASPIRIN X2 TABS Q 6 PRN FOR PAIN.
[2025-04-30 15:49] VITALS: BP 152/57
--- NOTE | 2025-04-30 16:55 | NUR ---
SUMMARY- AAOX3-4. PT PLACED ON 2L PRN THIS SHIFT WHEN EXERTING HIMSELF. PT ON RA LATER THIS EVENING. GOOD APPETITE. BEDREST. PT COULD ONLY MOVE HIMSELF WITH ASSISTANCE TO THE EDGE OF THE BED THIS SHIFT. PAIN WELL CONTROLLED WITH EMAR PAIN MEDS. NO FEVERS THIS SHIFT. NO ACUTE EVENTS THIS SHIFT.
[2025-04-30 19:24] VITALS: BP 150/60
[2025-05-01] VITALS (7 sets, daily range): BP systolic 126–170; BP diastolic 61–76
[2025-05-01 04:41] LABS: BASOPHILS ABSOLUTE AUTO 0.03 K/mm3 (0.00-0.23); BASOPHILS PERCENT AUTO 0 % (0-2); EOSINOPHILS ABSOLUTE AUTO 0.09 K/mm3 (0.00-0.68); EOSINOPHILS PERCENT AUTO 1 % (0-6); Hematocrit 25.1 % (37.0-53.0); Hemoglobin 8.2 g/dL (13.5-17.5); IMMATURE GRAN ABSOLUTE AUTO 0.05 K/mm3 (0.00-0.10); IMMATURE GRAN PERCENT AUTO 1 % (0-1); LYMPHOCYTES ABSOLUTE AUTO 1.76 K/mm3 (0.84-5.20); LYMPHOCYTES PERCENT AUTO 19 % (21-46); MONOCYTES ABSOLUTE AUTO 0.88 K/mm3 (0.16-1.47); MONOCYTES PERCENT AUTO 10 % (4-13); Mean Corpuscular HGB Conc 32.7 g/dL (31.5-36.5); Mean Corpuscular Volume 92 fL (80-100); NEUTROPHILS ABSOLUTE AUTO 6.29 K/mm3 (1.96-9.15); NEUTROPHILS PERCENT AUTO 69 % (41-73); NRBC ABSOLUTE 0.00 K/mm3 (0.00-0.02); NRBC Auto 0.0 /100 WBC (0.0-0.2); Platelet Count 474 K/mm3 (150-400); RDW Coefficient Variation 13.6 % (11.7-14.2); RDW Standard Deviation 46.1 fL (35.1-46.3)
[2025-05-01 05:02] LABS: Anion Gap 8.0 mmol/L (3-11); Blood Urea Nitrogen 18.0 mg/dL (8-24); CO2, Blood 29.0 mmol/L (21-32); Calcium, Blood 9.0 mg/dL (8.5-10.1); Chloride, Blood 106.0 mmol/L (98-108); Creatinine, Blood 0.64 mg/dL (0.60-1.20); Glucose, Blood 120.0 mg/dL (70-99); Potassium, Blood 3.2 mmol/L (3.5-5.5); Sodium, Blood 140.0 mmol/L (136-145)
--- NOTE | 2025-05-01 05:12 | NUR ---
Shift Summary- - Events: No new shift events. The patient rested comfortably overnight and was compliant with CPAP use. - Safety: Fall risk; bed alarm is active. - Orientation: A/Ox4. - Ambulation: Currently on bedrest; wheelchair at baseline. The patient is working with PT/OT to regain strength and was reportedly only able to sit at the bedside. - Medication: Taken whole with water. - Toileting: Purewick for urine; incontinent of stool. LBM on 04/30/25.
--- NOTE | 2025-05-01 11:26 | NUR ---
NOTIFIED DR. PISANO OF POTASSIUM OF 3.2 THIS AM.
[2025-05-01] MEDS ORDERED: CefTRIAXone Sodium 2,000 MG in NS 100 ML IV SCH (14:00)
--- NOTE | 2025-05-01 14:11 | NUR ---
PT SKIN IS MODERATE EXCORIATED TO BILAT UPPER THIGHS AND GROIN, PENIS AND SCROTUM HAVE SOME PEELING. PUREWICK REMOVED AND BARRIER CREAM APPLIED TO LIMIT MOISUTRE TO AREA. PT EDUCATED TO CALL FOR ASSISTANCE WITH URINALS. URINARY TEPEE PLACED FOR POTENTIAL INCONTINENCE.
[2025-05-01] MEDS ORDERED: Ampicillin Sodium 2000MG Vial IV SCH (16:00)
[2025-05-01] MEDS ORDERED: Ampicillin Sod 2,000 MG in NS 100 ML IV SCH (16:00)
--- NOTE | 2025-05-01 18:43 | NUR ---
SUMMARY/TRANSFER PATIENT WAS SEEN BY SCANNER SUPERVISOR TODAY AND PLACED BACK ON TELE, NSR 70'S-80'S. CHANGES MADE TO IV ANTIX THERAPY PER DR. IPSANO WHO IS IS CONSULTING WITH INFECTIOUS DISEASE. REPEAT BLOOD CX COMPLETED TODAY. BNP WAS ELEVATED. PT WAS STARTED ON LOW DOSE LASIX TODAY PER SCANNER SUPERVISOR. IV POTASSIUM WAS STILL INFUSING DURING TRANSFER, REPOSITIONING Q2. STRICT I&O'S. WAS UNABLE TO GET PT BED ZERO'D OUT SO UNABLE TO OBTAIN WEIGHT THIS AM. UPDATED TELEGRAPH LINEMAN STEVEN AT BEDSIDE HE NEEDS HIS BED ZERO'D OUT WITH THE WAFFLE MATTRESS FOR WEIGHTS TO BE ACCURATE NOW. REPORT COMPLETED AT BEDSIDE. ALL BELONGINGS GATHERED AND TAKEN TO NEW ROOM. PT DID NOT HAVE BOWEL MOVEMENT TODAY, STILL PENDING STOOL OCCULT. BLADDER SCAN COMPLETED POST VOID AND WAS 224, PT THEN FELT THE URGE TO VOID AGAIN AND VOIDED 12O. PT CALLING APPROPRIATELY FOR URINAL. PT UPATED WITH HIS PERSONAL PHONE OF TRANSFER.
[2025-05-02 03:14] VITALS: BP 146/62
[2025-05-02 06:50] LABS: BASOPHILS ABSOLUTE AUTO 0.03 K/mm3 (0.00-0.23); BASOPHILS PERCENT AUTO 0 % (0-2); EOSINOPHILS ABSOLUTE AUTO 0.09 K/mm3 (0.00-0.68); EOSINOPHILS PERCENT AUTO 1 % (0-6); Hematocrit 25.4 % (37.0-53.0); Hemoglobin 8.2 g/dL (13.5-17.5); IMMATURE GRAN ABSOLUTE AUTO 0.06 K/mm3 (0.00-0.10); IMMATURE GRAN PERCENT AUTO 1 % (0-1); LYMPHOCYTES ABSOLUTE AUTO 1.87 K/mm3 (0.84-5.20); LYMPHOCYTES PERCENT AUTO 20 % (21-46); MONOCYTES ABSOLUTE AUTO 0.92 K/mm3 (0.16-1.47); MONOCYTES PERCENT AUTO 10 % (4-13); Mean Corpuscular HGB Conc 32.3 g/dL (31.5-36.5); Mean Corpuscular Volume 92 fL (80-100); NEUTROPHILS ABSOLUTE AUTO 6.42 K/mm3 (1.96-9.15); NEUTROPHILS PERCENT AUTO 68 % (41-73); NRBC ABSOLUTE 0.00 K/mm3 (0.00-0.02); NRBC Auto 0.0 /100 WBC (0.0-0.2); Platelet Count 476 K/mm3 (150-400); RDW Coefficient Variation 13.6 % (11.7-14.2); RDW Standard Deviation 46.1 fL (35.1-46.3)
[2025-05-02 07:26] LABS: Alanine Aminotransfer (ALT/SGP 36.0 U/L (12-78); Albumin, Blood 1.7 g/dL (3.4-5.0); Albumin/Globulin Ratio 0.5 (0.8-1.8); Anion Gap 7.0 mmol/L (3-11); Aspartate Aminotrans (AST/SGOT 23.0 U/L (12-37); Bilirubin, Total 0.3 mg/dL (0.1-1.0); Blood Urea Nitrogen 17.0 mg/dL (8-24); CO2, Blood 30.0 mmol/L (21-32); Calcium, Blood 8.8 mg/dL (8.5-10.1); Chloride, Blood 105.0 mmol/L (98-108); Creatinine, Blood 0.64 mg/dL (0.60-1.20); Globulin, Blood 3.2 g/dL (2.2-4.0); Glucose, Blood 91.0 mg/dL (70-99); Potassium, Blood 3.4 mmol/L (3.5-5.5); Sodium, Blood 139.0 mmol/L (136-145); Total Protein, Blood 4.9 g/dL (6.4-8.2)
--- NOTE | 2025-05-02 08:07 | NUR ---
SHIFT SUMMARY: PT IS A&OX4, PLEASANT AND COOPERATIVE WITH CARE. VSS ON RA, HE WEARS HIS HOME CPAP AT NIGHT. SR WITH 1ST DEGREE HB 60'S-70'S. C/O PAIN IN HIS BILAT SHOULDERS AND BACK, MEDICATED WITH PRN 650MG PO ASPIRIN AND BACLOFEN. PT ALSO HAS SCHEDULED PAIN MEDICATION. TOLERATING A REGULAR DIET. NOOB THIS SHIFT, REPOSITIONING TOLERATED. PT IS CONT/INCONTINENT OF URINE, AND INCONTINENT OF STOOL. HE IS VOIDING ADEQUATE AMOUNTS OF YELLOW URINE IN URINAL. BRIEF IN PLACE AND CHANGED NEEDED. PT HAD 1 VERY LARGE LOOSE BM AND 2 SMALL LOOSE BM'S THIS SHIFT. THIS RN HELD HIS SENNA THIS SHIFT. BED IN LOWEST POSITION, CALL LIGHT WITHIN REACH. PT DOES NOT ALWAYS USE HIS CALL LIGHT APPROPRIATELY, BED ALARM SET FOR PT'S SAFETY.
[2025-05-02 08:11] VITALS: BP 162/61
[2025-05-02] MEDS ORDERED: Miconazole Nitrate 2% 85 GM PWD TOP SCH (10:50)
[2025-05-02 12:45] VITALS: BP 143/57
[2025-05-02 12:59] LABS: Stool Occult Blood Guaiac 1 Pos (Neg)
[2025-05-02 15:45] VITALS: BP 154/59
--- NOTE | 2025-05-02 18:03 | NUR ---
SHIFT SUMMARY PT A&OX4, VSS, TOLERATING PO, VOIDING, AND PAIN MANAGED PER EMAR. PT WORKED W/ PHYSICAL AND OCCUPATIONAL THERAPY. PT REQUIRED MOD ASSIST TO THE EOB, SEE THERAPY NOTES. PT HAD MULTIPLE LARGE STOOLS THIS AM, STOOL SOFTENER HELD. IV ABX INFUSED PER ORDER. NO OTHER ACUTE CHANGES. CALL LIGHT WITHIN REACH AND PT ABLE TO MAKE NEEDS KNOWN.
[2025-05-02 19:40] VITALS: BP 129/58
[2025-05-02 23:52] VITALS: BP 147/75
[2025-05-03 04:21] VITALS: BP 147/65
[2025-05-03 04:38] LABS: BASOPHILS ABSOLUTE AUTO 0.02 K/mm3 (0.00-0.23); BASOPHILS PERCENT AUTO 0 % (0-2); EOSINOPHILS ABSOLUTE AUTO 0.13 K/mm3 (0.00-0.68); EOSINOPHILS PERCENT AUTO 2 % (0-6); Hematocrit 24.2 % (37.0-53.0); Hemoglobin 7.9 g/dL (13.5-17.5); IMMATURE GRAN ABSOLUTE AUTO 0.04 K/mm3 (0.00-0.10); IMMATURE GRAN PERCENT AUTO 1 % (0-1); LYMPHOCYTES ABSOLUTE AUTO 2.03 K/mm3 (0.84-5.20); LYMPHOCYTES PERCENT AUTO 27 % (21-46); MONOCYTES ABSOLUTE AUTO 0.78 K/mm3 (0.16-1.47); MONOCYTES PERCENT AUTO 10 % (4-13); Mean Corpuscular HGB Conc 32.6 g/dL (31.5-36.5); Mean Corpuscular Volume 92 fL (80-100); NEUTROPHILS ABSOLUTE AUTO 4.47 K/mm3 (1.96-9.15); NEUTROPHILS PERCENT AUTO 60 % (41-73); NRBC ABSOLUTE 0.00 K/mm3 (0.00-0.02); NRBC Auto 0.0 /100 WBC (0.0-0.2); Platelet Count 442 K/mm3 (150-400); RDW Coefficient Variation 13.7 % (11.7-14.2); RDW Standard Deviation 46.4 fL (35.1-46.3)
[2025-05-03 05:00] LABS: Anion Gap 9.0 mmol/L (3-11); Blood Urea Nitrogen 16.0 mg/dL (8-24); CO2, Blood 29.0 mmol/L (21-32); Calcium, Blood 8.8 mg/dL (8.5-10.1); Chloride, Blood 104.0 mmol/L (98-108); Creatinine, Blood 0.72 mg/dL (0.60-1.20); Glucose, Blood 91.0 mg/dL (70-99); Potassium, Blood 3.6 mmol/L (3.5-5.5); Sodium, Blood 138.0 mmol/L (136-145)
--- NOTE | 2025-05-03 07:22 | NUR ---
SHIFT SUMMARY: PT IS A&OX4, PLEASANT AND COOPERATIVE WITH CARE. VSS ON RA, HE WEARS HIS HOME CPAP AT NIGHT. SR WITH 1ST DEGREE HB 60'S-70'S. C/O PAIN IN HIS BILAT SHOULDERS AND BACK, MEDICATED WITH PRN 650MG PO ASPIRIN. PT ALSO HAS SCHEDULED PAIN MEDICATION. TOLERATING A REGULAR DIET. NOOB THIS SHIFT, REPOSITIONING TOLERATED. CONDOM CATHETER DRAINING CLEAR YELLOW URINE TO GRAVITY. NO BM THIS SHIFT, BRIEF IN PLACE. BED IN LOWEST POSITION, CALL LIGHT WITHIN REACH. PT DOES NOT ALWAYS USE HIS CALL LIGHT APPROPRIATELY, BED ALARM SET FOR PT'S SAFETY.
[2025-05-03 08:20] VITALS: BP 168/67
[2025-05-03 12:53] VITALS: BP 123/60
[2025-05-03 16:56] VITALS: BP 150/69
--- NOTE | 2025-05-03 18:05 | NUR ---
SHIFT SUMMARY PT HGB TRENDING DOWN. THIS RN NOTIFIED DURING AM ROUND, ASPIRIN D/C. PT C/O PAIN T/O SHIFT THAT WAS MEDICATED PER EMAR. IV ABX INFUSED. NO OTHER ACUTE CHANGES. CALL LIGHT WITHIN REACH AND PT ABLE TO MAKE NEEDS KNOWN.
[2025-05-03 20:02] VITALS: BP 134/68
[2025-05-03] MEDS ORDERED: Pantoprazole Sodium 40 MG Injection IV SCH (21:00)
[2025-05-03 23:50] VITALS: BP 146/67
[2025-05-04 03:29] VITALS: BP 165/71
[2025-05-04 04:50] LABS: Hematocrit 27.2 % (37.0-53.0); Hemoglobin 9.0 g/dL (13.5-17.5)
[2025-05-04 05:00] VITALS: BP 150/71
[2025-05-04 05:16] LABS: Anion Gap 5.0 mmol/L (3-11); Blood Urea Nitrogen 17.0 mg/dL (8-24); CO2, Blood 32.0 mmol/L (21-32); Calcium, Blood 8.7 mg/dL (8.5-10.1); Chloride, Blood 101.0 mmol/L (98-108); Creatinine, Blood 0.79 mg/dL (0.60-1.20); Glucose, Blood 116.0 mg/dL (70-99); Potassium, Blood 3.3 mmol/L (3.5-5.5); Sodium, Blood 135.0 mmol/L (136-145)
--- NOTE | 2025-05-04 07:12 | NUR ---
SHIFT SUMMARY: PT WAS COOPERATIVE THE ENTIRE SHIFT. NO COMPLAINTS OF CHEST PAINS OR SHORTNESS OF BREATH. PT WOULD MAKE HIS NEEDS KNOWN AND CALL AND ASK FOR SOME PAIN MEDS. PT HAD A FEBRILE EPISODE AT O4OO, MEDICATED PER EMAR. BLOOD SAMPLE WAS TAKEN FROM PICC LINE, RESULTED WITH POTASSIUM OF 3.3. RESIDENT ON DUTY WAS INFORMED AND WAS TOLD THAT HE WILL LET THE MORNING SHIFT RESIDENT KNOW. ENDORSED TO NEXT NURSE ON DUTY.
[2025-05-04 08:07] VITALS: BP 152/82
[2025-05-04] MEDS ORDERED: Buprenorphine HCL/Naloxone HCL 2-0.5MG 1 EA SL ONE (10:40)
[2025-05-04 12:06] VITALS: BP 131/60
--- NOTE | 2025-05-04 15:41 | NUR ---
THIS RN GAVE REPORT TO SOPHIA RODRIGUEZ. MICHAEL TO ASSUME CARE OF PT.
[2025-05-04 16:07] VITALS: BP 136/63
--- NOTE | 2025-05-04 18:13 | NUR ---
ASSUMPTION OF CARE FROM MICHAEL ABOUT 1630 THE PT IS UP IN THE ROOM AND CONVERSING APPROPRAITELY. HE IS ABLE TO MAKE HIS NEEDS KNOWN AND APPEARS TO BE A&OX4, THE PT IS CURRENTLY SITTING IN BED. HE HAS ABX INFUSING IN HIS PICC LINE AND WAS ABLE TO TAKE ORAL MEDICATION WHOLE WITH WATE. HE IS SR 70'S ON TELE AND BP STABLE. HE IS CURRENTLY ON RA W/ SP02 >93% THE PT DENIES ANY CURRENT PAIN, SOB, OR ANGINA. HE IS SET UP IN THE ROOM EATING DINNER AT THIS TIME. BED ALARM INTACT. SEE NOTES FOR UPDATES.
[2025-05-04 20:00] VITALS: BP 132/62
[2025-05-04] MEDS ORDERED: Buprenorphine HCL/Naloxone HCL 2-0.5MG 1 EA SL SCH (21:00)
[2025-05-05 00:08] VITALS: BP 132/59
[2025-05-05 03:08] VITALS: BP 155/73
[2025-05-05 05:30] LABS: BASOPHILS ABSOLUTE AUTO 0.03 K/mm3 (0.00-0.23); BASOPHILS PERCENT AUTO 0 % (0-2); EOSINOPHILS ABSOLUTE AUTO 0.08 K/mm3 (0.00-0.68); EOSINOPHILS PERCENT AUTO 1 % (0-6); Hematocrit 26.3 % (37.0-53.0); Hemoglobin 8.7 g/dL (13.5-17.5); IMMATURE GRAN ABSOLUTE AUTO 0.03 K/mm3 (0.00-0.10); IMMATURE GRAN PERCENT AUTO 0 % (0-1); LYMPHOCYTES ABSOLUTE AUTO 1.78 K/mm3 (0.84-5.20); LYMPHOCYTES PERCENT AUTO 22 % (21-46); MONOCYTES ABSOLUTE AUTO 0.75 K/mm3 (0.16-1.47); MONOCYTES PERCENT AUTO 9 % (4-13); Mean Corpuscular HGB Conc 33.1 g/dL (31.5-36.5); Mean Corpuscular Volume 92 fL (80-100); NEUTROPHILS ABSOLUTE AUTO 5.35 K/mm3 (1.96-9.15); NEUTROPHILS PERCENT AUTO 67 % (41-73); NRBC ABSOLUTE 0.00 K/mm3 (0.00-0.02); NRBC Auto 0.0 /100 WBC (0.0-0.2); Platelet Count 439 K/mm3 (150-400); RDW Coefficient Variation 14.0 % (11.7-14.2); RDW Standard Deviation 47.1 fL (35.1-46.3)
[2025-05-05 06:05] LABS: Anion Gap 9.0 mmol/L (3-11); Blood Urea Nitrogen 15.0 mg/dL (8-24); CO2, Blood 29.0 mmol/L (21-32); Calcium, Blood 8.8 mg/dL (8.5-10.1); Chloride, Blood 101.0 mmol/L (98-108); Creatinine, Blood 0.69 mg/dL (0.60-1.20); Glucose, Blood 95.0 mg/dL (70-99); Potassium, Blood 3.5 mmol/L (3.5-5.5); Sodium, Blood 135.0 mmol/L (136-145)
--- NOTE | 2025-05-05 06:23 | NUR ---
SHIFT SUMMARY: PT IS A&OX4, PLEASANT AND COOPERATIVE WITH CARE. VSS ON RA, HE WEARS HIS HOME CPAP AT NIGHT. SR WITH 1ST DEGREE HB 60'S-70'S. C/O PAIN IN HIS BILAT SHOULDERS AND BACK, MEDICATED WITH PRN 650MG PO TYLENOL. PT ALSO HAS SCHEDULED PAIN MEDICATION. TOLERATING A REGULAR DIET. NOOB THIS SHIFT, REPOSITIONING TOLERATED. CONDOM CATHETER DRAINING LARGE AMOUNTS OF CLEAR, PALE YELLOW URINE TO GRAVITY. ONE SMALL SOFT BM THIS SHIFT, BRIEF IN PLACE AND CHANGED NEEDED. BED IN LOWEST POSITION, CALL LIGHT WITHIN REACH.
--- NOTE | 2025-05-05 07:10 | NUR ---
ASSUMPTION OF CARE: REPORT FROM CHANA STEVENS RN TO ASSUME CARE OF PT. PT RESTING IN BED WITH NO NEEDS OR COMPLAINTS AT THIS TIME. NADN. CALL LIGHT IN REACH.
[2025-05-05 08:33] VITALS: BP 150/89
[2025-05-05 13:04] VITALS: BP 127/61
--- NOTE | 2025-05-05 13:29 | NUR ---
Spiritual care visit conducted. Patient is alert and oriented. He tells me that he will tranfer to a SNF soon and then have his heart valve replaced. He tells me about his amira remaining strong and about his hopes to recover well. He also emphasises his peace with God and man and that he is ready to should it be his time. He welcomed prayer and so I gladly provided a prayer and words of encouragement. He shows signs of an elevated mood.
[2025-05-05] MEDS ORDERED: LOSARTAN POTAS100 MG PO (14:40)
[2025-05-05] MEDS ORDERED: TAMS.4ER PO (14:41)
[2025-05-05] MEDS ORDERED: FT SENNA-S 8.61 EACH PO (14:41)
[2025-05-05] MEDS ORDERED: PROBIOTIC1 EA13 PO (14:41)
[2025-05-05] MEDS ORDERED: FURO20 PO (14:41)
[2025-05-05] MEDS ORDERED: PANT40 PO (14:43)
[2025-05-05] MEDS ORDERED: Ampicillin Sodiu2 G1 IV (14:44)
[2025-05-05] MEDS ORDERED: CEFTRIAXONE2 G7 IV (14:44)
--- NOTE | 2025-05-05 15:03 | NUR ---
THIS RN ATT[facility]ED TO CALL [facility] AT 1500, PRINTING EQUIPMENT MECHANIC ANSWERED AND TRANSFERED CALL WHICH DID NOT GO THROUGH. THIS RN HAS ATTEMPTED TO CALL [facility] SEVERAL TIMES FOR REPORT. UVR PHONE JUST RINGS WITH NO ANSWER. PT DISCHARGED VIA EMS AT 1557 VIA WHEELCHAIR. PT DENIES ANY CP, PRESSURE, TIGHTNESS OR SOB THIS SHIFT. WORKED WILL WITH PHYSICAL AND OCCUPATIONAL THERAPY TODAY. NO OTHER SIGNIFICANT EVENTS HAPPENED DURINGT THIS SHIFT.
[2025-05-05 15:45] VITALS: BP 151/62
== END 2025-05-05 16:47 | DRG 871 ==
LOC: ER 18:54 → ERHOLD 18:55 → MEDS 18:55 → PCU 05-01 18:28
PROVIDERS: Emergency Medicine; Internal Medicine; Student in an Organized Health Care Education/Training Program; ADMIT Internal Medicine
PROC: 3E02340 Introduction of Influenza Vaccine into Muscle, Percutaneous Approach (ICD-10-PCS; 2025-04-21)
PROC: 3E03329 Introduction of Other Anti-infective into Peripheral Vein, Percutaneous Approach (ICD-10-PCS; principal; 2025-04-22)
PROC: B24BZZ4 Ultrasonography of Heart with Aorta, Transesophageal (ICD-10-PCS; 2025-04-29)
PROC: 02HV33Z Insertion of Infusion Device into Superior Vena Cava, Percutaneous Approach (ICD-10-PCS; 2025-05-01)
PROC: B548ZZA Ultrasonography of Superior Vena Cava, Guidance (ICD-10-PCS; 2025-05-01)
DX: A41.81 Sepsis due to Enterococcus (principal); I33.0 Acute and subacute infective endocarditis; I69.851 Hemiplegia and hemiparesis following other cerebrovascular disease affecting right dominant side; E87.1 Hypo-osmolality and hyponatremia; K92.2 Gastrointestinal hemorrhage, unspecified; N13.2 Hydronephrosis with renal and ureteral calculous obstruction; M17.10 Unilateral primary osteoarthritis, unspecified knee; I10 Essential (primary) hypertension; Z96.653 Presence of artificial knee joint, bilateral; E87.6 Hypokalemia; R53.81 Other malaise; B95.2 Enterococcus as the cause of diseases classified elsewhere; G89.4 Chronic pain syndrome; F11.10 Opioid abuse, uncomplicated; E88.09 Other disorders of plasma-protein metabolism, not elsewhere classified; K59.09 Other constipation; G47.33 Obstructive sleep apnea (adult) (pediatric); D50.9 Iron deficiency anemia, unspecified; E86.0 Dehydration; I08.2 Rheumatic disorders of both aortic and tricuspid valves; E78.5 Hyperlipidemia, unspecified; Z79.82 Long term (current) use of aspirin; Z88.8 Allergy status to other drugs, medicaments and biological substances; Z79.899 Other long term (current) drug therapy; Z98.890 Other specified postprocedural states; Z99.89 Dependence on other enabling machines and devices; Z87.440 Personal history of urinary (tract) infections; Z23 Encounter for immunization
CPT/HCPCS: 36415; 36569; 71045; 71046; 74176; 76705; 80048; 80053; 80069; 80202; 81001; 82272; 82728; 83540; 83550; 83605; 83735; 83880; 84100; 84443; 85014; 85018; 85025; 85027; 86140; 87040; 87077; 87086; 87186; 87637; 92610; 93005; 93010; 93306; 93312; 93325; 94762; 96365; 97110; 97162; 97166; 97530; 97535; 99285-25; A9270; C1751; G0378; J0290; J0295; J0360; J0456; J0572; J0696; J0878; J1171; J1650; J1750; J1885; J2003; J2470; J2704; J3373; J3480; J7030; J7040; J7050; Q9967